=== PATIENT | male | born 1960 | race African-American/Black ===

== ENCOUNTER 2016-03-08 22:51 | Inpatient (IN) | payer OTHER ==
[~2016-03-08] VITALS: Ht 175.3 cm; Wt 115.0 kg
[~2016-03-08 22:51] MED LIST: ALBU8.5H4 IH; CLAR10T PO; IPRA30SP; NEX40C PO; Nebulizer NEB; PRE20 PO
[2016-03-08 22:58] VITALS: BP 146/91; PULSE 117; RESP 30; O2SAT 90
--- NOTE | 2016-03-08 23:09 | ED.REPORT ---
HPI-Dyspnea / Wheezing Date of Service Mar 08, 2016 ED Provider: Buster Pritchett MD Pt is a 55 year old male with a hx of asthma, DM and HTN presenting to the ED complaining of flu like symptoms onset yesterday. Associated symptoms include body aches, fever, congestion, chills, SOB, diaphoresis, nausea, vomiting and a productive cough. The pt reports that he was seen 2 days ago. He states that he cannot use a nebulizer because he lives in his car, but he has been using an inhaler. Nursing Notes Stated Complaint: ASTHMA Chief Complaint: Respiratory Distress Nursing Notes Reviewed: Yes ([employer], [employer] not reconciled) Allergies: Coded Allergies: aspirin (Verified Allergy, Severe, Anaphylaxis, 03/06/16) Uncoded Allergies: BEE STING (Allergy, Unknown, 03/06/16) Scheduled Esomeprazole-Expunged Drug, Do Not Renew! (Esomeprazole-Expunged Drug, Do Not Renew!) 40 Mg Capsule.dr 40 MG PO DAILYAC Ipratropium-Expunged Drug, Do Not Renew! (Ipratropium-Expunged Drug, Do Not Renew!) 345 [place]/30 Ml [place] 2 SPR NA BID 2 TO 3 TIMES EVERY DAY IN EACH NOSTRIL. Loratadine-Expunged Drug, Do Not Renew! (Loratadine-Expunged Drug, Do Not Renew! ) 10 Mg Tablet 10 MG PO DAILY Prednisone (PredniSONE) 20 Mg Tablet 60 MG PO DAILY Scheduled PRN ([Nebulizer]) NEB Q4 PRN PRN As needed for shortness of breath Albuterol-Expunged Drug, Do Not Renew! (Albuterol-Expunged Drug, Do Not Renew!) 8.5 Gm Hfa.aer.ad 2 PUFFS IH Q4 PRN PRN As needed for shortness of breath General Time Seen by MD: 23:07 Chief Complaint Asthma attack, Other (Fever, cough) Hx Obtained From: Patient Arrived By: Walk-in Sudden in Onset?: No Onset Occurred: Yesterday Symptom Duration: Since onset Severity: Current: No pain currently Severity: Maximum: No pain Recent Healthcare: No recent hospitalization, Recent doctor visit Similar Sx Previous: Yes Risk Factors CAD Risk Stratification Diabetes mellitus Hypertension Risk factors reviewed Past Medical History Past Medical History 1. History of asthma. 2. Depression and posttraumatic stress disorder. 3. Hypertension. Reports: Diabetes mellitus, GERD Past Surgical History Endoscopy Smoking History Unknown if Ever Smoker Social History Other Social History: Good social support, Local resident Ambulatory Status Independent Review of Systems Constitutional: Reports: Chills, Fever Ears / Nose / Throat: Reports: Nasal congestion Respiratory: Reports: Prod cough, clear, Shortness of breath Skin: Reports Diaphoresis Complete sys rev & neg: except as marked. GI: Reports: Nausea, Vomiting Physical Exam Initial Vital Signs Vital Signs (First) Date Time Temp Pulse Resp B/P Pulse Ox O2 Delivery O2 Flow Rate FiO2 03/08/16 22:58 38.2 117 30 146/91 90 Room Air 03/09/16 00:40 3 Initial VS: Reviewed, Vital signs abnormal Abdomen / GI: No distention Skin: Warm, Dry, No cyanosis Neurologic: Alert, Oriented, Nonfocal Psychiatric: Mood/affect normal, Behavior normal, Normal thought content General/Constitutional: Awake, Alert, No acute distress Appears fatigued Neck: Supple, Full range of motion Respiratory / Chest: Atraumatic Resp Distress / Stridor: Positive: Resp distress moderate Diminished Breath Sounds: Positive: Decreased bilateral Scattered wheezing Cardiovascular: Regular rhythm Heart Rate / Rhythm: Positive: Tachycardia Lower Extremity / Pelvis / MS: No edema Upper Extremity / MS: No edema Interpretation & Diagnostics Lab Results Interpretation Result Diagram: 03/08/16 2330 03/08/16 2330 Test 03/08/16 23:30 White Blood Count 6.9th/mm3 (3.8-10.1) Red Blood Count 5.90mil/mm3 (4.40-5.80) Hemoglobin 14.9g/dL (13.8-17.2) Hematocrit 46.0% (41.0-50.0) Mean Corpuscular Volume 78.0fL (81-100) Mean Corpuscular Hemoglobin 25.3pg (27.0-35.0) Mean Corpuscular Hemoglobin Concent 32.4% (32.0-37.0) Red Cell Distribution Width 14.9% (12.3-15.4) Platelet Count 213bil/L (150-400) Neutrophils (%) (Auto) 68.0% (40-74) Lymphocytes (%) (Auto) 12.6% (14-46) Monocytes (%) (Auto) 19.2% (4-12) Eosinophils (%) (Auto) 0% (0-5) Basophils (%) (Auto) 0.1% (0-3) Sodium Level 131mEq/L (134-144) Potassium Level 4.3mEq/L (3.5-5.2) Chloride Level 92mEq/L (97-108) Carbon Dioxide Level 24mmol/L (18-29) Blood Urea Nitrogen 16mg/dL (6-24) Creatinine 0.99mg/dL (0.76-1.27) Estimat Glomerular Filtration Rate 83mL/min (>59) Glucose Level 225mg/dL (60-99) Lactic Acid Level 2.1mmol/L (0.4-2.0) Calcium Level 9.3mg/dL (8.5-10.1) Total Bilirubin 0.4mg/dL (0.0-1.2) Aspartate Amino Transf (AST/SGOT) 38U/L (0-50) Alanine Aminotransferase (ALT/SGPT) 42U/L (0-44) Alkaline Phosphatase 52U/L (25-150) Total Protein 7.9g/dL (6.4-8.4) Albumin 4.4g/dL (3.4-5.0) Lab Results Interpretation: CBC normal CMP mild hyperglycemia lactic acid borderline elevated Influenza A positive X-Ray Chest Interpretation Chest Xray Interpretation: IMPRESSION: Negative. Interpretation / Wet Read by: Wet read ED physician Re-Eval/Medical Decision Med Decision/Clinical Course This is a 55-year-old homeless male with moderate asthma who seemed couple of days ago having run out of his medications and who lives in a car, he turned around well with the treatment at that time-but now re-presents complaining of new shortness breath, along with fevers chills body aches and flulike symptoms. Patient reports has not really been able to take any medicines as lives in his car. He has an inhaler, but is not using a spacer. On exam, he is fatigued, febrile, tachypneic, and tachycardic. He has initially extremely poor air movement on initial exam, but did respond to aggressive albuterol, Atrovent, steroids therapy in the department with improvement in aeration, and air movement-and audible worsening of bronchospasm as would be expected as is air movement improves. A chest x-ray was obtained given the febrile borderline hypoxic status - but no infiltrate was appreciated. Influenza A is positive, she will explain some of the symptoms. He has no infiltrate, and I do not find an indication for antibiotics. However given the meet CBC criteria for influenza in the setting of asthma with the setting of a significant exacerbation, he was started on Tamiflu. He is hydrated, given eat breakfast, but is still fatigued. He is definitely doing better, I do not think he is indicated for discharge given his homeless status and severity of initial presentation, but he has turned around from being extremely ill on initial arrival, I think he is a reasonable candidate for telemetry admission. Source of Hx: Old records Re-Evaluation/Progress : Time of Eval: 00:26 Patient Status: Condition improved Re-Evaluation/Progress Note: Breath sounds improved. Discussed plan for admission. Pt understands and agrees with plan. Consultation : Referral / Consult Name: La Nena Lake MD Consulted With: Hospitalist Call Returned at: 01:25 Spray Dry Operator: Will see patient, Agrees with plan, Accepts admit Differential Diagnosis: Positive: Asthma, Negative: Hypertensive emergency, Pneumonia, Pneumothorax, Pulmonary embolism , Respiratory failure Counseled Regarding: Diagnosis, Lab results, Need for follow-up, When/why to return to ED Discharge & Departure Impression: Primary Impression: Acute asthma exacerbation Asthma severity: moderate persistent Qualified Code: J45.41 - Moderate persistent asthma with (acute) exacerbation Additional Impression: Influenza A Disposition: ADMITTED TO HOSPITAL Discharge Condition All VS Reviewed: Yes Condition: Improved Referrals: Issa Sanders PA-C (PCP) Crit Care Except Billable Proc Time Spent: 30-74 minutes Services Performed: Patient management by me, Time spent at bedside, Reviewing test results, Reviewing imaging, Discussing patient care, Documentation in record Scribe Attestation Portions of this note were transcribed by Nikia Reyna. I, Dr. Pritchett personally performed the history, physical exam and medical decision-making; I reviewed and confirmed the accuracy of the information in the transcribed note. Signed by: Simran Romero, 03/08/16 and 0125. copies to: Issa Sanders PA-C, Matthew F MD Mar 08, 2016 23:09 NIKIA REYNA Mar 08, 2016 23:15
[2016-03-08] MEDS ORDERED: MethylprednisoLONE Sodium Succinate 62.5 mg/mL 2 mL Inj IVPUSH ONE (23:10)
[2016-03-08] MEDS ORDERED: Ipratropium 0.02% 0.5 mg/2.5 mL Inhalation Solution NEB ONE (23:10)
[2016-03-08] MEDS ORDERED: Albuterol 2.5 mg/3 mL Inhalation Solution NEB ONE (23:10)
[2016-03-08] MEDS ORDERED: 0.9% Sodium Chloride 1,000 ML IV ONE (23:10)
[2016-03-08] MEDS ORDERED: Magnesium Sulf 2 Gm/50mL Water 2 GM in IV Premix 1 EACH IV ONE (23:15)
[2016-03-08 23:17] VITALS: PULSE 118; RESP 20; O2SAT 91
[2016-03-08 23:57] LABS: BASOPHILS % (AUTO) 0.1 % (0-3); EOSINOPHILS % (AUTO) 0 % (0-5); MONOCYTES % (AUTO) 19.2 % (4-12); Mean Corpuscular Hemoglobin 25.3 pg (27.0-35.0); Platelet Count 213 bil/L (150-400)
[2016-03-09] VITALS (10 sets, daily range): BP systolic 121–146; BP diastolic 73–82; PULSE 55–117; RESP 16–22; O2SAT 93–98
[2016-03-09] MEDS ORDERED: Albuterol 2.5 mg/3 mL Inhalation Solution NEB ONE (00:30)
[2016-03-09] MEDS: 0.9% Sodium Chloride 1,000 ML IV SCH ×2 (01:27→09:23)
[2016-03-09] MEDS ORDERED: Alum-Mag Hydrox-Simeth 30 mL Suspension PO PRN ×2 (01:30→02:15)
[2016-03-09] MEDS ORDERED: Ondansetron 2 mg/mL 2 mL Inj IVPUSH PRN ×2 (01:30→02:15)
[2016-03-09] MEDS ORDERED: Polyethylene Glycol (PEG) 17 Gm Powder PO PRN (02:15)
[2016-03-09] MEDS ORDERED: Glucose 40% Oral Gel 15 Gm Tube PO PRN (02:15)
[2016-03-09 02:37] LABS: BASOPHILS % (AUTO) 0.1 % (0-3); EOSINOPHILS % (AUTO) 0 % (0-5); MONOCYTES % (AUTO) 4.4 % (4-12); Mean Corpuscular Hemoglobin 25.3 pg (27.0-35.0); NEUTROPHILS % (AUTO) 87.7 % (40-74); Platelet Count 181 bil/L (150-400)
--- NOTE | 2016-03-09 02:52 | NUR ---
admit note: pt. admitted for sob, cough, fever, body aches, weakness. pt. states he has been sick since . pt. lives in his car. He is a diabetic, on metformin, has asthma, neb tx. prn. on 3Lo2 now sats 97%, was 86% on room air on admission.
--- NOTE | 2016-03-09 03:10 | PCM.HPMED ---
Subjective Date of Service Mar 09, 2016 Primary Provider: Admitting Physician: La Nena Lake MD Primary Care Physician: William Attending Physician: La Nena Lake MD Chief Complaint: Shortness of breath, cough History of Present Illness: Patient is a 55-year-old male with asthma, type 2 diabetes mellitus and depression presenting with shortness of breath and cough. The patient reports onset of shortness of breath and wheezing about one week ago. The patient was seen in the ED on 03/06/2016 for the same symptoms and was discharged with prednisone and an albuterol inhaler. The patient endorses associated fever, chills, myalgias and productive cough. Patient states that he has not paid attention to sputum color. He is currently homeless and living in his car and believes the cold temperature exacerbated his asthma. Prior to his ED visit on 03/06/2016, the patient did not have his albuterol inhaler. The patient reports worsening of his shortness of breath today, which prompted him to return to [facility] ED for further evaluation. In the ED, influenza screen positive for influenza A. The patient was given Solu-Medrol 125mg, magnesium 2g and albuterol nebulizer treatments. At time of visit, the patient reports improvement with his breathing but not quite at his usual baseline. In the ED, vitals: temp 38.2, HR 117, RR 30 satting 90% on room air, BP 146/91. Na 131, glucose 225. Lactate 2.1. Review of Systems: A comprehensive review of systems was conducted with the patient and found to be negative except as above in the History of Present Illness. Allergies Coded Allergies: aspirin (Verified Allergy, Severe, Anaphylaxis, 03/06/16) Uncoded Allergies: BEE STING (Allergy, Unknown, 03/06/16) Home Medications Metformin 500mg PO BID Claritin 10mg PO BID Albuterol nebulizer BID PRN Albuterol rescue inhaler PRN Qvar 80mcg 2 puffs BID PMH -Asthma -Type 2 diabetes mellitus -Insomnia -Depression . Surgical History Bilateral patella Family History Mother is alive with hypertension Father at [id number] from [place] Social History Occupation: [employer] Hx Alcohol Use: No Hx Substance Use: No Hx Tobacco Use: No Smoking Status: Unknown if Ever Smoker Living Arrangement: Homeless Exam Vital Signs Vital Sign - Last Date Time Temp Pulse Resp B/P Pulse Ox O2 Delivery O2 Flow Rate FiO2 03/09/16 01:45 37.8 96 22 146/78 96 Simple Mask 3 Intake and Output 03/08/16 03/08/16 03/09/16 Cumulative From/Thru 15:00 23:00 07:00 03/08/16 22:58 - 03/09/16 01:44 Intake Total 1050 ml 1050 ml Balance 1050 ml 1050 ml Intake IV Total 1050 ml 1050 ml Exam General: Mild distress, well-developed, well-nourished, appropriately interactive HEENT: Normocephalic, atraumatic. External ears without defect. Pupils equal, round, and reactive to light. Anicteric sclerae, moist conjunctivae, and no lid lag. Oropharynx free of erythema and cobble stoning with moist mucosa. Oxymask in place. Neck: Supple with full range of motion. No jugular venous distension. No bruits. No lymphadenopathy or thyromegaly. Cardiovascular: Regular rate and rhythm with no murmurs, rubs, or gallops appreciated Pulmonary: Coarse diffusely with expiratory wheezes. Abdomen: Bowel tones present. Soft, nontender, mild distention. No hepatosplenomegaly or masses appreciated. Extremities: No clubbing, cyanosis, edema, or lymphadenopathy appreciated. Skin: Normal temperature, turgor, and texture; no rash, ulcers, or subcutaneous nodules appreciated. Neurological: Cranial nerves grossly intact. Psychiatric: Normal mood and affect. Alert and oriented to person, place, and time. Lab and Diagnostics Result Diagram: 03/08/16 2330 03/08/16 233 X-Rays, CTs and MRIs Chest x-ray radiology read pending Assessment & Plan Patient is a 55-year-old male with asthma, type 2 diabetes mellitus and depression presenting with shortness of breath and cough admitted for asthma exacerbation and influenza A. 1. Severe sepsis. Present on admission. Active -Meets criteria with HR (117), RR (30), lactic acid (2.1) with positive influenza screen -Continue IV fluids -Trend lactate until normalizes -Procalcitonin pending 2. Acute asthma exacerbation. Present on admission. Active -Lungs coarse diffusely with wheezing -Patient received Solu-medrol 125mg IV in ED -Albuterol Q2 hours PRN -Continue supplemental oxygen PRN -ABG pending 3. Influenza A infection. Present on admission. Active -Droplet precautions -Tamiflu x5 days 4. Type 2 diabetes mellitus, chronic. Present on admission -Blood glucose 225, likely partially attributed to steroids -Bedside blood glucose checks -Hemoglobin A1c pending -Hold home metformin -Low dose correction with insulin Lispro Patient Status: Patient is admitted under observation status with expected length of stay less than 2 midnights due to severity of presenting symptoms and risk of adverse event. GI Prophylaxis: Not indicated VTE Prophylaxis: Sub-Q Heparin (Unfractionated) Resuscitation Status: CPR: Attempt Resuscitation Attending Statement Pt seen and examined by myself and agree with above plan. Giuseppe López DO Mar 09, 2016 02:27 La Nena Lake MD Mar 09, 2016 06:41
[2016-03-09 03:19] LABS: TROPONIN T 0.01 ug/L (0.0-0.011)
--- NOTE | 2016-03-09 03:36 | NUR ---
lab: pt's lactic acid went from 2.1 to 4.2, night resident paged, will repeat lactic acid level in 2 hrs. pt. has normal saline at 100ml/hr. pt. sleeping sats 95% heart rate low 100's. Addendum: 03/09/16 at 0341 by SELENE JONES RN NS increased to 150ml/hr.
[2016-03-09 05:36] LABS: APPEARANCE,URINE CLEAR (CLEAR,HAZY); COLOR,URINE ORANGE (YELLOW)
--- NOTE | 2016-03-09 07:05 | DRSVH ---
PROCEDURE: X-RAY CHEST ONE VIEW, PORTABLE ([id number]) INDICATIONS: 55 year-old male with shortness of breath and asthma. TECHNIQUE: One view of the chest was acquired. COMPARISON: [facility], CR, XR CHEST 2VW, 03/07/2016, 1:05. [facility], CR, CHEST 1VW (PORTABLE), 02/10/2012, 20:45. [facility], CR, CHEST 1VW (PORTABLE), 2, 16:07. FINDINGS: Surgical changes and devices: None. Lungs and pleura: No pleural effusions or pneumothorax. Lungs are clear. Mediastinum: Mediastinal contours appear normal. Heart size is normal. Bones and chest wall: No suspicious bony lesions. Overlying soft tissues appear unremarkable. IMPRESSION: No acute cardiopulmonary disease. Dictated by: Jaswant Bangura M.D. on 03/09/2016 at 7:03 Approved by: Jaswant Bangura M.D. on 03/09/2016 at 7:03
[2016-03-09] MEDS: Heparin 5,000 Unit/mL Inj SUBQ SCH ×3 (07:49→23:46)
[2016-03-09] MEDS: Insulin LISPRO 300 Unit/3 mL Inj SUBQ SCH ×4 (07:53→21:21)
[2016-03-09] MEDS: Albuterol 2.5 mg/3 mL Inhalation Solution NEB PRN ×3 (08:24→23:59)
--- NOTE | 2016-03-09 11:06 | PCM.PNMED ---
Subjective Date of Service Mar 09, 2016 Subjective - Pt seen and examined this morning. - He is c/o shortness of breath. States that he is feeling much better than yesterday. - Denies chest pain Exam Vital Signs Vital Sign - Last Date Time Temp Pulse Resp B/P Pulse Ox O2 Delivery O2 Flow Rate FiO2 03/09/16 08:24 99 16 95 Room Air 03/09/16 02:15 36.8 121/73 3.00 Intake and Output 03/08/16 03/08/16 03/09/16 Cumulative From/Thru 15:00 23:00 07:00 03/08/16 22:58 - 03/09/16 06:06 Intake Total 1514 ml 1514 ml Balance 1514 ml 1514 ml Intake IV Total 1514 ml 1514 ml Exam General: Mild distress, well-developed, well-nourished, appropriately interactive HEENT: Normocephalic, atraumatic. External ears without defect. Pupils equal, round, and reactive to light. Anicteric sclerae, moist conjunctivae, and no lid lag. Oropharynx free of erythema and cobble stoning with moist mucosa. Oxymask in place. Neck: Supple with full range of motion. No jugular venous distension. No bruits. No lymphadenopathy or thyromegaly. Cardiovascular: Regular rate and rhythm with no murmurs, rubs, or gallops appreciated Pulmonary: Coarse diffusely with expiratory wheezes. Abdomen: Bowel tones present. Soft, nontender, mild distention. No hepatosplenomegaly or masses appreciated. Extremities: No clubbing, cyanosis, edema, or lymphadenopathy appreciated. Skin: Normal temperature, turgor, and texture; no rash, ulcers, or subcutaneous nodules appreciated. Neurological: Cranial nerves grossly intact. Psychiatric: Normal mood and affect. Alert and oriented to person, place, and time. IVs and Medications Medications Reviewed: Medications were reviewed in detail Lab and Diagnostics Result Diagram: 03/09/1622703/09/16227 X-Rays, CTs and MRIs Chest x-ray radiology read pending Assessment & Plan 55-year-old male with asthma, type 2 diabetes mellitus and depression presenting with shortness of breath and cough admitted for asthma exacerbation and influenza A. 1. Severe sepsis. Present on admission. Active - Meets criteria with HR (117), RR (30), lactic acid (2.1) with positive influenza screen - Lactic acid is sill elevated but trending down 2.5 <-- 4.2 - Will continue IV fluids -Procalcitonin: 0.05 2. Acute asthma exacerbation. Present on admission. Active - Patient received Solu-medrol 125mg IV in ED - Albuterol Q2 hours PRN - Continue supplemental oxygen PRN 3. Influenza A infection. Present on admission. Active -Droplet precautions -Tamiflu x5 days 03/09 - 4. Type 2 diabetes mellitus, chronic. Present on admission - Bedside blood glucose checks - Hemoglobin A1c pending - Hold home metformin - Low dose correction with insulin Lispro Patient Status: Patient is admitted under observation status with expected length of stay less than 2 midnights due to severity of presenting symptoms and risk of adverse event. GI Prophylaxis: Not indicated VTE Prophylaxis: Sub-Q Heparin (Unfractionated) Resuscitation Status: CPR: Attempt Resuscitation Rusty Berger MD Mar 09, 2016 11:06
[2016-03-09] MEDS ORDERED: 0.9% Sodium Chloride 1,000 ML IV SCH (16:05)
--- NOTE | 2016-03-09 22:08 | NUR ---
resp: pt's sats dropped to mid 80's on room air while sleepping, 3LO2 on sats now 96%, prn neb tx given for wheezing.
[2016-03-10] VITALS (10 sets, daily range): BP systolic 105–142; BP diastolic 67–95; PULSE 89–103; RESP 16–20; O2SAT 93–97
[2016-03-10] MEDS: Heparin 5,000 Unit/mL Inj SUBQ SCH ×3 (07:51→23:45)
[2016-03-10] MEDS: Insulin LISPRO 300 Unit/3 mL Inj SUBQ SCH ×4 (08:54→21:07)
[2016-03-10] MEDS ORDERED: ALBU2.5V4 INHALATION (09:02)
[2016-03-10] MEDS ORDERED: METF500T4 PO (09:02)
[2016-03-10] MEDS ORDERED: IPRA30SP8 NS (09:02)
[2016-03-10] MEDS ORDERED: LORA10CA PO (09:02)
[2016-03-10] MEDS: Albuterol 2.5 mg/3 mL Inhalation Solution NEB PRN ×2 (09:03→20:16)
[2016-03-10] MEDS ORDERED: ALBU8.5H2 INHALATION (09:04)
[2016-03-10] MEDS ORDERED: IPRA3AMP NEB (09:06)
[2016-03-10 09:50] LABS: Mean Corpuscular Hemoglobin 25.2 pg (27.0-35.0); Mean Corpuscular Volume 78.4 fL (81-100)
--- NOTE | 2016-03-10 16:23 | NUR ---
Influenza vaccine Pt. had a fever yesterday as well as on admit. Hold influenza vaccine for now.
[2016-03-10] MEDS ORDERED: Influenza (Adult) Vaccine 0.5 mL Syringe IM ONE (16:30)
--- NOTE | 2016-03-10 18:27 | PCM.PNMED ---
Subjective Date of Service Mar 10, 2016 Subjective He is feeling a little bit better today. He does not use oxygen at home, now on room air. No chest pain, nausea vomiting, abdominal pain. Exam Vital Signs Vital Sign - Last Date Time Temp Pulse Resp B/P Pulse Ox O2 Delivery O2 Flow Rate FiO2 03/10/16 16:59 36.7 89 20 134/91 97 Room Air 03/09/16 02:15 3.00 Intake and Output 03/09/16 03/09/16 03/10/16 Cumulative From/Thru 15:00 23:00 07:00 03/08/16 22:58 - 03/10/16 05:41 Intake Total 3686 ml 1110 ml 6310 ml Output Total 2000 ml 1150 ml 3150 ml Balance 1686 ml -40 ml 3160 ml Intake Oral 2200 ml 640 ml 2840 ml IV Total 1486 ml 470 ml 3470 ml Output Urine Total 2000 ml 1150 ml 3150 ml # Voids 2 2 # Bowel Movements 1 0 1 Exam General: Alert, Oriented X3, NAD Head: Normocephalic, atraumatic Eyes: NOLBERTO, EOMI, no scleral Icterus Chest: Coarse breath sounds. Occasional wheezing noted throughout Heart: Regular rate and rhythm. Normal S1, S2, no murmurs noted Abdomen: soft, non-tender. Bowel sounds are normoactive. No guarding or rebound. Extremities: no cyanosis, clubbing or edema. IVs and Medications Medications Reviewed: Medications were reviewed in detail Lab and Diagnostics Result Diagram: 03/10/16 0940 03/10/16 0940 X-Rays, CTs and MRIs Chest x-ray radiology read pending Assessment & Plan 55-year-old male with asthma, type 2 diabetes mellitus and depression presenting with shortness of breath and cough admitted for asthma exacerbation and influenza A. 1. Severe sepsis. Present on admission. Active - Meets criteria with HR (117), RR (30), lactic acid (2.1) with positive influenza screen - Lactic acid is sill elevated but trending down 2.5 <-- 4.2 - Will continue IV fluids -Procalcitonin: 0.05 -Improving 2. Acute asthma exacerbation. Present on admission. Active - Patient received Solu-medrol 125mg IV in ED - Albuterol Q2 hours PRN - Continue supplemental oxygen PRN -We will add prednisone, short course. Wheezing on exam 3. Influenza A infection. Present on admission. Active -Droplet precautions -Tamiflu x5 days 03/09 - 4. Type 2 diabetes mellitus, chronic. Present on admission - Bedside blood glucose checks - Hemoglobin A1c 9.2 - Restart metformin - Low dose correction with insulin Lispro CODE STATUS: Full code DVT prophylaxis: Heparin Disposition: Likely home tomorrow with continued improvement. GI Prophylaxis: Not indicated VTE Prophylaxis: Sub-Q Heparin (Unfractionated) VTE Mechanical Devices: Intermittant Pneumatic CD Resuscitation Status: CPR: Attempt Resuscitation Jacob Abbasi DO Mar 10, 2016 18:27
[2016-03-10] MEDS: predniSONE 20 mg Tablet PO SCH (20:27)
[2016-03-11 01:25] VITALS: BP 122/78; PULSE 89; RESP 20; O2SAT 96
[2016-03-11 05:25] VITALS: BP 125/80; PULSE 87; RESP 20; O2SAT 95
[2016-03-11 06:04] LABS: BASOPHILS % (AUTO) 0.2 % (0-3); EOSINOPHILS % (AUTO) 0 % (0-5); MONOCYTES % (AUTO) 10.1 % (4-12); Mean Corpuscular Hemoglobin 25.2 pg (27.0-35.0); Mean Corpuscular Volume 77.1 fL (81-100); NEUTROPHILS % (AUTO) 67.7 % (40-74); Platelet Count 214 bil/L (150-400)
[2016-03-11] MEDS: Heparin 5,000 Unit/mL Inj SUBQ SCH (08:14)
[2016-03-11] MEDS: predniSONE 20 mg Tablet PO SCH (08:15)
[2016-03-11] MEDS: Insulin LISPRO 300 Unit/3 mL Inj SUBQ SCH ×2 (08:16→11:51)
[2016-03-11 10:11] VITALS: PULSE 89
[2016-03-11 10:50] VITALS: PULSE 85; RESP 19; O2SAT 93
[2016-03-11 11:33] VITALS: BP 135/88; PULSE 93; RESP 20; O2SAT 98
--- NOTE | 2016-03-11 12:01 | NUR ---
Social Work Screening/ D: EMR Reviewed. Pt is a 55Y old male admitted for Influenza A, Asthma Exacerbation. [facility]. No PCP listed. LITO met with Pt at bedside, SW role explained. Pt currently homeless, living out of his car. Pt uses a nebulizer and CPAP but has been unable to do so while staying in his car. Pt reports this is a temporary situation until Pt can reapply for a housing loan on 03/17/16. LITO provided Pt with information on [facility] in [place] due to the current weather conditions. Pt applied for FMLA through his employer, ppwk was to be faxed to hospital. Ppwk not received, Pt requesting ppwk be refaxed, [facility] aware and will keep an eye out for it. [facility] contacted [facility] on Pt's behalf. Pt previously seen by Issa Sanders who is no longer with [facility]. LITO scheduled a hospital follow up and transfer of care appointment for Pt with Solomon March PA-C. Both appointments entered into discharge tab and written information provided to Pt. Pt will bring FMLA ppwk to appointments. Pt denied any additional needs at this time. If needs arise, LITO to address. A: Pt who is currently homeless P: SW anticipates Pt to discharge back to his car at this time. Pt provided with [facility] information. Hospital Follow up and Transfer of Care appointments scheduled. No other discharge needs identified, if needs arise, LITO to address.
[2016-03-11] MEDS ORDERED: OSLT75C PO (12:41)
--- NOTE | 2016-03-11 12:43 | PCM.DIMED ---
Discharge Instructions Date of Service Mar 11, 2016 Dates of Hospitalization Mar 09, 2016 at 01:23 Discharge Diagnosis Discharge Diagnosis Influenza A Asthma exacerbation Diet Diabetic Activity No restrictions Call your provider Fever or Chills, Shortness of breath, Chest pain, Excessive diarrhea, Weakness ( unilateral) Patient Instructions Follow-up with PCP in: 1 week Jacob Abbasi DO Mar 11, 2016 12:43
--- NOTE | 2016-03-11 14:34 | NUR ---
Discharge Pt was given discharge instruction. all instructions were review with patient and patient had no further questions. Pt voiced concern about controlling his diabetes but verbalized understanding of his diabetes, diet and what he needs to do to move forward in his fight to control it. Pt is independent is room and is eating lunch now. Pt will get dressed and will be escorted out of the hospital when ready. Pt does have a ride and is homeless. Pt is comfortable at this time breathing room air and has no pain or any other verbal complaint of discomfort.
--- NOTE | 2016-03-11 19:39 | PCM.DC.MED ---
Discharge Summary Date of Service Mar 11, 2016 Dates of Hospitalization Date of Hospital Admission Mar 09, 2016 at 01:23 Date of Discharge: Mar 11, 2016 Providers: Admitting Physician: La Nena Lake MD Primary Care Physician: William Attending Physician: La Nena Lake MD Diagnosis at Time of Discharge Diagnosis at Time of Discharge Influenza A Asthma exacerbation Procedures XRay, CTs & MRIs Chest x-ray radiology read pending Brief History Patient is a 55-year-old male with asthma, type 2 diabetes mellitus and depression presenting with shortness of breath and cough. The patient reports onset of shortness of breath and wheezing about one week ago. The patient was seen in the ED on 03/06/2016 for the same symptoms and was discharged with prednisone and an albuterol inhaler. The patient endorses associated fever, chills, myalgias and productive cough. Patient states that he has not paid attention to sputum color. He is currently homeless and living in his car and believes the cold temperature exacerbated his asthma. Prior to his ED visit on 03/06/2016, the patient did not have his albuterol inhaler. The patient reports worsening of his shortness of breath today, which prompted him to return to [facility] ED for further evaluation. In the ED, influenza screen positive for influenza A. The patient was given Solu-Medrol 125mg, magnesium 2g and albuterol nebulizer treatments. At time of visit, the patient reports improvement with his breathing but not quite at his usual baseline. In the ED, vitals: temp 38.2, HR 117, RR 30 satting 90% on room air, BP 146/91. Na 131, glucose 225. Lactate 2.1. Hospital Course 55-year-old male with asthma, type 2 diabetes mellitus and depression presenting with shortness of breath and cough admitted for asthma exacerbation and influenza A. He was started on Tamiflu and was also given steroids. He did improve through his hospital stay and was able to maintain his oxygen saturations. He was discharged home in stable condition and will follow-up with his primary care physician within one week, sooner if his condition worsened in any way. 1. Severe sepsis. Present on admission. Active - Meets criteria with HR (117), RR (30), lactic acid (2.1) with positive influenza screen - Lactic acid is sill elevated but trending down 2.5 <-- 4.2 - Will continue IV fluids -Procalcitonin: 0.05 -Improving 2. Acute asthma exacerbation. Present on admission. Active - Patient received Solu-medrol 125mg IV in ED - Albuterol Q2 hours PRN - Continue supplemental oxygen PRN -We will add prednisone, short course. Wheezing on exam 3. Influenza A infection. Present on admission. Active -Droplet precautions -Tamiflu x5 days 03/09 - 4. Type 2 diabetes mellitus, chronic. Present on admission - Bedside blood glucose checks - Hemoglobin A1c 9.2 - Restart metformin - Low dose correction with insulin Lispro Exam Vital Signs (Last) Date Time Temp Pulse Resp B/P Pulse Ox O2 Delivery O2 Flow Rate FiO2 03/11/16 11:33 36.0 93 20 135/88 98 Room Air 03/09/16 02:15 3.00 Test 03/09/16 02:28 03/09/16 05:00 03/09/16 09:15 03/10/16 09:40 Hemoglobin A1c 9.2% (4.8-5.6) Total Bilirubin 0.4mg/dL (0.0-1.2) Aspartate Amino Transf (AST/SGOT) 33U/L (0-50) Alanine Aminotransferase (ALT/SGPT) 33U/L (0-44) Alkaline Phosphatase 46U/L (25-150) Total Protein 6.8g/dL (6.4-8.4) Albumin 3.7g/dL (3.4-5.0) Procalcitonin 0.05ng/mL (See Comment) Urine Color [place] (YELLOW) Urine Appearance Clear (CLEAR,HAZY) Urine pH (5.0-8.0) Urine Specific [place] 1.035 (1.003-1.035) Urine Protein mg/dL (NEG,TRACE) Urine Glucose (UA) mg/dL (NEGATIVE) Urine Ketones mg/dL (NEGATIVE) Urine Occult Blood (NEGATIVE) Urine Nitrite (NEGATIVE) Urine Bilirubin (NEGATIVE) Urine Urobilinogen mg/dL (NORMAL) Urine Leukocyte Esterase (NEGATIVE) Urine RBC 0-2/hpf (0-2) Urine WBC 0-5/hpf (0-5) Urine Epithelial Cells Occasional/hpf (NONE-MOD) Urine Crystals None seen (NONE SEEN) Urine Bacteria None/hpf (NONE-FEW) Urine Hyaline Casts None/lpf (NONE) Urine Granular Casts None seen (NONE SEEN) Urine Waxy Casts None seen (NONE SEEN) Urine Red Blood Cell Casts None seen (NONE SEEN) Urine White Blood Cell Casts None seen (NONE SEEN) Urine Mucus Present (None Seen) Urine Trichomonas None seen (NONE SEEN) Urine Yeast None (NONE SEEN) Urinalysis Comment Color interference Urine Culture Reflexed Not indicated Troponin T < 0.010ug/L (0.0-0.011) Lactic Acid Level 1.3mmol/L (0.4-2.0) Test 03/11/16 05:38 White Blood Count 5.3th/mm3 (3.8-10.1) Red Blood Count 5.84mil/mm3 (4.40-5.80) Hemoglobin 14.7g/dL (13.8-17.2) Hematocrit 45.0% (41.0-50.0) Mean Corpuscular Volume 77.1fL (81-100) Mean Corpuscular Hemoglobin 25.2pg (27.0-35.0) Mean Corpuscular Hemoglobin Concent 32.7% (32.0-37.0) Red Cell Distribution Width 14.5% (12.3-15.4) Platelet Count 214bil/L (150-400) Neutrophils (%) (Auto) 67.7% (40-74) Lymphocytes (%) (Auto) 22.0% (14-46) Monocytes (%) (Auto) 10.1% (4-12) Eosinophils (%) (Auto) 0% (0-5) Basophils (%) (Auto) 0.2% (0-3) Sodium Level 131mEq/L (134-144) Potassium Level 5.1mEq/L (3.5-5.2) Chloride Level 95mEq/L (97-108) Carbon Dioxide Level 23mmol/L (18-29) Blood Urea Nitrogen 14mg/dL (6-24) Creatinine 0.78mg/dL (0.76-1.27) Estimat Glomerular Filtration Rate 109mL/min (>59) Glucose Level 254mg/dL (60-99) Calcium Level 9.0mg/dL (8.5-10.1) Discharge Medications Discharge Medications Ipratropium [place] (Ipratropium [place] 0.03% Nasal) 30 Ml [place] 2 SPRAY NS BID (Reported) Loratadine (Claritin) 10 Mg Capsule 10 MG PO DAILY (Reported) Metformin (Metformin) 500 Mg Tablet 500 MG PO BID (Reported) Oseltamivir Phosphate (Tamiflu) 10 Cap/Pkg Capsule 75 MG PO BID Prescribed by: LILY ABBASI DO As needed Albuterol HFA (Proair HFA) 8.5 Gm Hfa.aer.ad 2 PUFFS INHALATION Q4H PRN PRN For Shortness of Breath (Reported) Ipratropium/Albuterol Sulfate (Iprat-Albut 0.5-3(2.5) mg/3 mL Inhalant Soln) 3 Ml Ampul.neb 1 VIAL NEB BID PRN PRN For Shortness of Breath (Reported) Followup Plan Discharge Diet: Diabetic Discharge Activity: No restrictions Follow-up with PCP in: 1 week Time spent 45 minutes spent discharging this patient. Lily Abbasi DO Mar 11, 2016 19:39
== END 2016-03-11 15:30 | disposition home or self-care (01) | DRG 203 ==
LOC: SED 22:51 → OBSVTOIN 03-09 01:23 → OSC 03-09 01:23 → INTOOBSV 03-09 01:23 → OSC 03-09 01:49
PROVIDERS: ADMIT Specialist; ATTEND Specialist
DX: J45.901 Unspecified asthma with (acute) exacerbation (principal); J10.1 Influenza due to other identified influenza virus with other respiratory manifestations; E11.9 Type 2 diabetes mellitus without complications; K21.9 Gastro-esophageal reflux disease without esophagitis; I10 Essential (primary) hypertension; Z59.0 Homelessness; Z79.51 Long term (current) use of inhaled steroids